=== PATIENT | female | born 1955 | race Caucasian/White ===

== ENCOUNTER 2020-07-03 10:11 | Outpatient (REF) | payer OTHER, SELFPAY | END 2020-07-03 10:12 | disposition home or self-care (01) | LOC: HO.LAB 10:11 | PROVIDERS: Visit Provider Internal Medicine | DX: Z20.822 Contact with and (suspected) exposure to COVID-19 (principal) | CPT/HCPCS: 36415; C9803; U0003 ==

== ENCOUNTER 2021-05-16 19:18 | Emergency (ER) | payer OTHER, SELFPAY ==
--- NOTE | ~2021-05-16 | XR_ITS ---
EXAMINATION: XR CHEST CLINICAL INFORMATION: Shortness breath Covid positive COMPARISON: None TECHNIQUE: Frontal view of the chest was obtained. FINDINGS: Left cannot exclude patchy opacity in the parahilar region. There is also some ill-defined opacity in the region of the right middle lobe. Subtle areas of infiltrate would need to be considered. There is no effusion. The mediastinal contours are within normal limits. Cardiac silhouette is within normal limits. XR/XR chest 1V IMPRESSION: Subtle lobe passive these parahilar region on left and right middle lobe. Small areas of infiltrate cannot be excluded.
[2021-05-16 19:51] VITALS: BP 128/75; PULSE 86; RESP 19; TEMP 37.1; O2SAT 94; BMI 42.0
--- NOTE | 2021-05-16 20:12 | PC.NURSE ---
pt ambulated in the [place]aiza on room air. pt hr stayed at 95 and sat on room air 96%. steady gait, no s/s of sob noted. pt gave one cough at the bedside only.
--- NOTE | 2021-05-16 21:03 | ECG_ITS ---
Test Reason : Covid Symptoms Blood Pressure : / mmHG Vent. Rate : 088 BPM Atrial Rate : 088 BPM P-R Int : 168 ms QRS Dur : 094 ms QT Int : 364 ms P-R-T Axes : 083 -26 066 degrees QTc Int : 440 ms Normal sinus rhythm Left axis deviation Intra-ventricular conduction delay Minimal voltage criteria for LVH, may be normal variant ( Dimitri product ) Abnormal ECG When compared with ECG of 13-OCT-2013 07:40, Vent. rate has increased BY 33 BPM Referred By: Roz Guajardo Electronically Signed By:ALEXANDRIA CHAPARRO MD
[2021-05-16 22:00] VITALS: BP 112/59; PULSE 82; RESP 22; TEMP 37.3; O2SAT 96
[2021-05-16 22:16] LABS: MANUAL DIFF FLAG NO
[2021-05-16 22:18] LABS: Hematocrit 37.9 % (37.0-47.0); Hemoglobin 12.2 g/dl (12.0-16.0); Imm Gran Abs Auto 0.02 X10*3/uL (0.00-0.03); Imm Gran Pct Auto 0.4 % (0.0-0.4); Lymphocytes Absolute Auto 1.5 X10*3/uL (1.2-4.9); Lymphocytes Percent Auto 27.3 % (20-40); Mean Corpuscular HGB Conc 32.2 g/dl (31.0-35.0); Mean Corpuscular Hemoglobin 28.4 pg (27.0-33.0); Mean Corpuscular Volume 88.1 fL (80.0-98.0); Mean Platelet Volume 8.4 fL (9.4-12.3); Monocytes Absolute Auto 0.6 X10*3/uL (0.1-1.2); Neutrophils Absolute Auto 3.3 x10*3/uL (2.0-8.3); Neutrophils Percent Auto 61.3 % (45-73); Platelet Count 229 X10*3/uL (160-400); Red Cell Distribution Width 15.4 % (11.0-16.0); White Blood Count 5.3 X10*3/uL (4.8-10.8)
[2021-05-16 22:30] LABS: Anion Gap 11 (12-20); Blood Urea Nitrogen 13 mg/dL (9-16); Calcium 8.4 mg/dL (8.4-10.2); Carbon Dioxide 25 mmol/L (22-29); Chloride 101 mmol/L (96-108); Creatinine Clr Calc Pharmacy 57.9; Estimated Glomerular Filt Rate 54; Glucose Random 111 mg/dL (60-115); Potassium 4.3 mmol/L (3.3-5.1); Sodium 133 mmol/L (135-145)
[2021-05-16 22:36] LABS: Troponin-I High Sensitivity 8.8 ng/L (<3.5-17.0)
--- NOTE | 2021-05-16 22:41 | ED.GENADULT ---
HPI - General Adult General Chief complaint: General Medical Stated complaint: covid positive diff breathing Time Seen by Provider: 05/16/21 21:03 Source: patient Mode of arrival: ambulatory Limitations: no limitations History of Present Illness HPI narrative: 65-year-old female was exposed to COVID infection and tested positive for COVID, patient presented with fever, chills, generalized body ache, chest tightness and pain, but no shortness of breath. With intermittent dry coughing. Patient's symptoms started 2 days ago. Patient did not receive COVID vaccination. Related Data Allergies Allergy/AdvReac Type Severity Reaction Status Date / Time naproxen [NAPROXEN] Allergy Unknown PALPATATION Verified 05/16/21 19:50 S Mold Allergy Unknown Unknown Uncoded 05/16/21 19:50 Review of Systems Review of Systems: all other systems are reviewed and are negative Constitutional: Reports as per HPI and Reports no additional constitutional complaints Eyes: Reports as per HPI and Reports no additional eye complaints Reports system reviewed and no additional complaints, except as documented Cardiovascular: Reports as per HPI and Reports no additional cardiovascular complaints Respiratory: Reports as per HPI and Reports no additional respiratory complaints Gastrointestinal: Reports as per HPI and Reports no additional gastrointestinal complaints Genitourinary: Reports no additional female genitourinary complaints Musculoskeletal: Reports no additional musculoskeletal complaints Skin/Breast: Reports system reviewed and no additional complaints, except as docu Psychiatric: Reports no additional psychiatric complaints Endocrine: Reports no additional endocrine complaints Hematologic/Lymphatic: Reports no additional hematologic/lymphatic complaints Allergic/Immunologic: Reports no additional allergic/immunologic complaints Reports system reviewed and no additional complaints, except as documented and Reports Abnormal speech present [facility] Past Medical History Medical History Asthma Social History Social History Advance Directives: No Advance Directives Information Provided: Yes Patient : No Physical Exam Vital Signs: Vital Signs: Last Vital Signs Temp 99.1 F 05/16/21 22:00 Pulse 82 05/16/21 22:00 Resp 22 H 05/16/21 22:00 BP 112/59 L 05/16/21 22:00 Pulse Ox 96 05/16/21 22:00 Body Mass Index 42.0 vital signs have been reviewed as appeared to be correct. Blood pressure normal. Heart rate normal. Respiration rate normal. Temperature normal. Oxygen saturation normal. Appearance: Alert. Oriented X3. No acute distress. Head: Normal external exam. Normocephalic. Atraumatic. No Garcia signs noted. No raccoon eyes noted Eyes: PERRLA. EOMI. Conjunctiva and sclera normal. Eyelids normal. ENT: TM's Normal. Pharynx normal. Uvula midline. Moist mucous membranes. No trismus noted. No drooling noted. No muffled voice noted. Neck: Normal inspection. Neck supple. FROM. No adenopathy. Thyroid Normal. No meningeal signs. No neck mass noted. CVS: Normal heart rate and rhythm. Heart sound normal. No murmurs noted. Pulses normal throughout. Respiratory: No respiratory distress. Painless inspiration. Breath sounds normal. No wheezes/rales/rhonchi noted. Chest nontender. No accessory muscle usage noted or decreased air movement noted. Abdomen: Soft and nontender. Bowel sounds normal in all 4 quadrants. No distention noted. No organomegaly noted. No visible injury noted. Back: No CVA tenderness. Full range of motion noted. Skin: Skin warm and dry. Normal skin color. Normal skin turgor. No rashes/lesions/lacerations noted. Extremities: No lower extremity edema. Extremities exhibit normal range of motion. Extremities nontender. Neuro: Oriented X 3. Cranial nerve exam: II-XII are grossly intact No motor deficit. No sensory deficit. Reflexes normal. Course Course Course Narrative: assessment and plan. 65-year-old female was COVID positive, patient has unremarkable workup for chest pain, while patient in the ED patient was maintaining normal oxygenation even with exertion, finding were discussed with the patient, patient was instructed to self quarantine at home and using recommended CDC measures to prevent further spread of the disease. And return if worsening of shortness of breath or becoming hypoxic. Medical Decision Making Lab Data Lab results reviewed: Yes I reviewed the patient's lab results. Result diagrams: 05/16/21 22:13 05/16/21 22:12 Labs: Lab Results 05/16/21 05/16/21 05/16/21 Range/Units 22:12 22:12 22:13 WBC 5.3 (4.8-10.8) X10*3/uL RBC 4.30 (4.20-5.50) X10*6/uL Hgb 12.2 (12.0-16.0) g/dl Hct 37.9 (37.0-47.0) % MCV 88.1 (80.0-98.0) fL MCH 28.4 (27.0-33.0) pg MCHC 32.2 (31.0-35.0) g/dl RDW 15.4 (11.0-16.0) % Plt Count 229 (160-400) X10*3/uL MPV 8.4 L (9.4-12.3) fL Immature Gran % (Auto) 0.4 (0.0-0.4) % Neut % (Auto) 61.3 (45-73) % Lymph % (Auto) 27.3 (20-40) % [place] % (Auto) 11.0 (2-11) % Eos % (Auto) 0.0 (0-4) % Baso % (Auto) 0.0 (0-2) % Lymph # (Auto) 1.5 (1.2-4.9) X10*3/uL [place] # (Auto) 0.6 (0.1-1.2) X10*3/uL Eos # (Auto) 0.0 (0.0-0.4) X10*3/uL Baso # (Auto) 0.0 (0.0-0.2) X10*3/uL Abs Immat Gran (auto) 0.02 (0.00-0.03) X10*3/uL Absolute Neuts (auto) 3.3 (2.0-8.3) x10*3/uL Absolute Nucleated RBC 0.000 (0.0-0.012) X10*3/uL Nucleated RBC % (auto) 0.0 (0.0-0.2) /100WBC Sodium 133 L (135-145) mmol/L Potassium 4.3 (3.3-5.1) mmol/L Chloride 101 (96-108) mmol/L Carbon Dioxide 25 (22-29) mmol/L Anion Gap 11 L (12-20) BUN 13 (9-16) mg/dL Creatinine 1.04 (0.5-1.4) mg/dL Estim Creat Clear Calc 57.9 Estimated GFR 54 Random Glucose 111 (60-115) mg/dL Calcium 8.4 (8.4-10.2) mg/dL Troponin I High Sens 8.8 (<3.5-17.0) ng/L Imaging Data Chest x-ray: Radiologist's impression: Left cannot exclude patchy opacity in the parahilar region. There is also some ill-defined opacity in the region of the right middle lobe. Subtle areas of infiltrate would need to be considered. There is no effusion. The mediastinal contours are within normal limits. Cardiac silhouette is within normal limits. ECG Data Attestation: I personally reviewed and interpreted this ECG as follows: Interpretation: Normal sinus rhythm at 88 beats per minutes, left axis deviation, LVH, normal intervals. No ST-T changes. Discharge Plan Discharge Clinical Impression: COVID-19 virus infection Patient Disposition: Home, Self-Care Instructions: Covid-19 Viral Syndrome and Novel Coronavirus (ED) Hey/Ath Referrals: Aimee Linares MD [Primary Care Provider] - 2 days Stand Alone Forms: Work/School Release
== END 2021-05-16 22:59 | disposition home or self-care (01) ==
PROVIDERS: Emergency Provider Emergency Medicine; PCP Internal Medicine
DX: U07.1 COVID-19 (principal); J45.909 Unspecified asthma, uncomplicated
CPT/HCPCS: 36415; 71045; 80048; 84484; 85025; 93005; 99283; 99284